=== PATIENT | male | born 1945 | race Caucasian/White ===

== ENCOUNTER 2020-07-08 17:31 | Inpatient (IN) ==
[2020-07-08] MEDS ORDERED: Aspirin 81 MG TAB.CHEW PO ONE (17:49)
[2020-07-08 18:06] LABS: Basophils # 0.1 K/mcL (0.0-0.2); Basophils % 0.8 %; Eosinophils # 0.2 K/mcL (0.0-0.6); Eosinophils % 2.4 %; Hematocrit 25.4 % (37.5-50.1); Hemoglobin 7.4 g/dL (12.9-16.9); Immature Granulocytes % 0.7 % (0-4); Lymphocytes # 3.1 K/mcL (0.6-4.6); Lymphocytes % 49.8 %; Mean Corpuscular HGB Conc 29.1 g/dL (31.6-35.5); Mean Corpuscular Hemoglobin 25.8 pg (28.0-33.3); Mean Corpuscular Volume 88.5 fL (83.0-100.0); Monocytes # 0.9 K/mcL (0.0-1.3); Monocytes % 14.7 %; Neutrophils # 1.9 K/mcL (1.6-8.9); Platelet Count 189 K/mcL (140-400); Red Blood Count 2.87 M/mcL (4.19-5.50); Red Cell Distribution Width 14.5 % (11.5-14.5); Segmented Neutrophils % 31.6 %; White Blood Count 6.1 K/mcL (4.3-11.1)
[2020-07-08 18:08] LABS: INR 1.1; Prothrombin Time 12.6 Seconds (9.4-12.1)
[2020-07-08 18:11] LABS: Activated Partial Thrombo Time 34.4 Seconds (26.0-36.0)
[2020-07-08] MEDS: DilTIAZem 50 MG/50 ML IV.SOLN IVC SCH (18:16)
[2020-07-08 18:28] LABS: BUN/Creatinine Ratio 18 (6-26); Blood Urea Nitrogen 20 mg/dL (8-23); Calcium 8.8 mg/dL (8.6-10.3); Carbon Dioxide 24 mEq/L (23-29); Chloride 103 mEq/L (98-107); Glucose 121 mg/dL (70-105); Osmolality,Calculated 288 (280-300); Potassium 3.5 mEq/L (3.5-5.1); Sodium 137 mEq/L (136-145); eGFR For African Americans > 60 (> 60); eGFR For Non-African Americans > 60 (> 60)
[2020-07-08 18:49] LABS: Troponin I < 0.03 ng/mL (< 0.04)
[2020-07-08] MEDS ORDERED: 0.9 % Sodium Chloride 500 ML IVC ONE (18:58)
[2020-07-08 21:35] LABS: Adenovirus Not Detected (Not Detect); Coronavirus 229E Not Detected (Not Detect); Coronavirus HKU1 Not Detected (Not Detect); Coronavirus NL63 Not Detected (Not Detect); Coronavirus OC43 Not Detected (Not Detect)
[2020-07-08 21:36] LABS: Bordetella Pertussis Not Detected (Not Detect); Chlamydophila pneumoniae Not Detected (Not Detect); Human Metapneumovirus Not Detected (Not Detect); Human Rhinovirus/Enterovirus Not Detected (Not Detect); Influenza A Subtype 2009 H1 Not Detected (Not Detect); Influenza B Not Detected (Not Detect); Mycoplasma pneumoniae Not Detected (Not Detect); Parainfluenza Virus 1 Not Detected (Not Detect); Parainfluenza Virus 2 Not Detected (Not Detect); Parainfluenza Virus 3 Not Detected (Not Detect); Parainfluenza Virus 4 Not Detected (Not Detect); Respiratory Syncytial Virus Not Detected (Not Detect); SARS-CoV-2 Not Detected (Not Detect)
[2020-07-08] MEDS ORDERED: Ondansetron ODT 4 MG TAB.RAPDIS SL PRN (22:45)
[2020-07-08] MEDS ORDERED: Naloxone 0.4 MG/ML INJ IVP PRN (22:45)
[2020-07-08] MEDS ORDERED: Acetaminophen 325 MG TABLET PO PRN (22:45)
[2020-07-08] MEDS ORDERED: Perflutren Lipid Microsphere 1.3 ML in 0.9 % Sodium Chloride 8.7 ML IVP PRN (22:50)
[2020-07-08] MEDS ORDERED: SUMAtriptan succinate 50 MG TABLET PO PRN (22:51)
[2020-07-08] MEDS ORDERED: Levalbuterol 1 PUFF INHALER IH PRN (23:17)
[2020-07-09 04:00] LABS: BUN/Creatinine Ratio 23 (6-26); Blood Urea Nitrogen 22 mg/dL (8-23); Calcium 8.1 mg/dL (8.6-10.3); Carbon Dioxide 24 mEq/L (23-29); Chloride 107 mEq/L (98-107); Glucose 109 mg/dL (70-105); Magnesium 1.6 mg/dL (1.6-2.6); Osmolality,Calculated 292 (280-300); Phosphorous 4.2 mg/dL (2.7-4.5); Potassium 3.7 mEq/L (3.5-5.1); Sodium 139 mEq/L (136-145); eGFR For African Americans > 60 (> 60); eGFR For Non-African Americans > 60 (> 60)
[2020-07-09 04:03] LABS: INR 1.1; Prothrombin Time 12.2 Seconds (9.4-12.1)
[2020-07-09 04:45] LABS: Ferritin < 8 ng/mL (20-250); Iron < 10 mcg/dL (65-175); Transferrin 308 mg/dL (203-362)
[2020-07-09] MEDS: DilTIAZem 50 MG/50 ML IV.SOLN IVC SCH ×3 (05:15→14:35)
[2020-07-09 05:48] LABS: Folate 7.7 ng/mL (3.0-16.0)
[2020-07-09 06:51] LABS: Basophils % 0.9 %; Eosinophils # 0.1 K/mcL (0.0-0.6); Eosinophils % 2.2 %; Hematocrit 21.8 % (37.5-50.1); Hemoglobin 6.5 g/dL (12.9-16.9); Immature Granulocytes % 0.4 % (0-4); Lymphocytes # 1.8 K/mcL (0.6-4.6); Lymphocytes % 39.3 %; Mean Corpuscular HGB Conc 29.8 g/dL (31.6-35.5); Mean Corpuscular Volume 87.2 fL (83.0-100.0); Mean Platelet Volume 12.3 fL (9.4-12.4); Monocytes # 0.7 K/mcL (0.0-1.3); Monocytes % 16.4 %; Neutrophils # 1.8 K/mcL (1.6-8.9); Platelet Count 191 K/mcL (140-400); Red Cell Distribution Width 14.7 % (11.5-14.5); Segmented Neutrophils % 40.8 %; White Blood Count 4.5 K/mcL (4.3-11.1)
[2020-07-09] MEDS: Budesonide/Formoterol 80/4.5 1 PUFF INH IH SCH ×2 (08:07→21:52)
[2020-07-09] MEDS: Pregabalin 75 MG CAPSULE PO SCH ×2 (08:55→20:46)
[2020-07-09] MEDS ORDERED: Metoprolol XL (24 HR) Succ 50 MG TAB.ER.24H PO SCH (09:00)
[2020-07-09] MEDS ORDERED: Apixaban 5 MG TABLET PO SCH (09:00)
[2020-07-09] MEDS ORDERED: Topiramate 100 MG TABLET PO SCH (09:00)
[2020-07-09] MEDS ORDERED: Aspirin Enteric Coated 81 MG Tablet PO SCH (09:00)
[2020-07-09] MEDS ORDERED: 0.9 % Sodium Chloride 250 ML ONE ×2 (10:15→17:18)
[2020-07-09] MEDS ORDERED: Nitroglycerin 0.4 MG TAB.SUBL SL PRN (12:48)
[2020-07-09] MEDS ORDERED: Ipratropium/Albuterol Neb 3 ML IH PRN (12:48)
[2020-07-09] MEDS ORDERED: Fluticasone Propionate Nasal 50 MCG/SPRAY BOTTLE NS PRN (12:48)
[2020-07-09] MEDS: Ranolazine 500 MG TAB.ER.12H PO SCH (13:31)
[2020-07-09] MEDS: Finasteride 5 MG TABLET PO SCH (13:31)
[2020-07-09] MEDS: Divalproex (24 HR) 500 MG TABLET PO SCH (13:33)
[2020-07-09 16:13] LABS: Hematocrit 24.8 % (37.5-50.1); Hemoglobin 7.5 g/dL (12.9-16.9)
[2020-07-09 22:35] LABS: Hematocrit 26.7 % (37.5-50.1); Hemoglobin 8.2 g/dL (12.9-16.9)
[2020-07-10] MEDS: Latanoprost 2.5 ML BOTTLE BOTH EYES SCH ×2 (00:22→21:27)
[2020-07-10] MEDS: Divalproex (24 HR) 500 MG TABLET PO SCH ×2 (00:31→12:27)
[2020-07-10] MEDS: Ranolazine 500 MG TAB.ER.12H PO SCH ×2 (00:31→12:27)
[2020-07-10 05:28] LABS: Hematocrit 26.5 % (37.5-50.1); Mean Corpuscular HGB Conc 30.2 g/dL (31.6-35.5); Mean Corpuscular Hemoglobin 26.6 pg (28.0-33.3); Mean Platelet Volume 11.6 fL (9.4-12.4); Platelet Count 186 K/mcL (140-400); Red Blood Count 3.01 M/mcL (4.19-5.50); Red Cell Distribution Width 15.1 % (11.5-14.5); White Blood Count 5.3 K/mcL (4.3-11.1)
[2020-07-10 05:57] LABS: BUN/Creatinine Ratio 21 (6-26); Blood Urea Nitrogen 22 mg/dL (8-23); Calcium 8.8 mg/dL (8.6-10.3); Carbon Dioxide 24 mEq/L (23-29); Chloride 111 mEq/L (98-107); Glucose 107 mg/dL (70-105); Magnesium 1.8 mg/dL (1.6-2.6); Osmolality,Calculated 294 (280-300); Phosphorous 3.2 mg/dL (2.7-4.5); Potassium 4.3 mEq/L (3.5-5.1); Sodium 140 mEq/L (136-145); eGFR For African Americans > 60 (> 60); eGFR For Non-African Americans > 60 (> 60)
[2020-07-10] MEDS: *HR* HYDROcodone/Acet 5/325 mg TABLET PO PRN ×3 (06:11→21:26)
[2020-07-10] MEDS: Budesonide/Formoterol 80/4.5 1 PUFF INH IH SCH ×2 (07:42→20:10)
[2020-07-10] MEDS: Sennosides 8.6 MG TABLET PO SCH (07:55)
[2020-07-10] MEDS: Loratadine 10 MG TABLET PO SCH (07:55)
[2020-07-10] MEDS: Finasteride 5 MG TABLET PO SCH (07:55)
[2020-07-10] MEDS: Pregabalin 75 MG CAPSULE PO SCH ×2 (07:55→20:01)
[2020-07-10] MEDS: Metoprolol XL (24 HR) Succ 50 MG TAB.ER.24H PO SCH (11:51)
[2020-07-10 14:42] LABS: Hematocrit 26.6 % (37.5-50.1)
[2020-07-10] MEDS ORDERED: *HR* Metoprolol 5 MG/5 ML VIAL IVP PRN (18:20)
[2020-07-10 20:08] LABS: Hematocrit 26.6 % (37.5-50.1); Hemoglobin 8.1 g/dL (12.9-16.9)
[2020-07-11] MEDS: Divalproex (24 HR) 500 MG TABLET PO SCH ×2 (00:10→11:59)
[2020-07-11] MEDS: Ranolazine 500 MG TAB.ER.12H PO SCH ×2 (00:10→11:59)
[2020-07-11 03:06] LABS: Hematocrit 27.6 % (37.5-50.1); Hemoglobin 8.1 g/dL (12.9-16.9); Mean Corpuscular HGB Conc 29.3 g/dL (31.6-35.5); Mean Corpuscular Hemoglobin 25.8 pg (28.0-33.3); Mean Corpuscular Volume 87.9 fL (83.0-100.0); Mean Platelet Volume 12.3 fL (9.4-12.4); Platelet Count 198 K/mcL (140-400); Red Blood Count 3.14 M/mcL (4.19-5.50); Red Cell Distribution Width 15.4 % (11.5-14.5); White Blood Count 5.7 K/mcL (4.3-11.1)
[2020-07-11 03:22] LABS: BUN/Creatinine Ratio 25 (6-26); Blood Urea Nitrogen 27 mg/dL (8-23); Calcium 8.5 mg/dL (8.6-10.3); Carbon Dioxide 22 mEq/L (23-29); Chloride 110 mEq/L (98-107); Glucose 101 mg/dL (70-105); Osmolality,Calculated 295 (280-300); Potassium 4.2 mEq/L (3.5-5.1); Sodium 140 mEq/L (136-145); eGFR For African Americans > 60 (> 60); eGFR For Non-African Americans > 60 (> 60)
[2020-07-11] MEDS: Sennosides 8.6 MG TABLET PO SCH (07:52)
[2020-07-11] MEDS: Loratadine 10 MG TABLET PO SCH (07:53)
[2020-07-11] MEDS: Metoprolol XL (24 HR) Succ 50 MG TAB.ER.24H PO SCH (07:54)
[2020-07-11] MEDS: Pregabalin 75 MG CAPSULE PO SCH ×2 (07:54→20:16)
[2020-07-11] MEDS: Finasteride 5 MG TABLET PO SCH (07:54)
[2020-07-11] MEDS: *HR* HYDROcodone/Acet 5/325 mg TABLET PO PRN ×2 (08:06→20:20)
[2020-07-11] MEDS: Budesonide/Formoterol 80/4.5 1 PUFF INH IH SCH ×2 (10:32→21:10)
[2020-07-11 13:09] LABS: Hematocrit 29.3 % (37.5-50.1); Hemoglobin 8.8 g/dL (12.9-16.9)
[2020-07-11] MEDS: Latanoprost 2.5 ML BOTTLE BOTH EYES SCH (20:16)
[2020-07-12] MEDS: Ranolazine 500 MG TAB.ER.12H PO SCH ×2 (01:01→12:51)
[2020-07-12] MEDS: Divalproex (24 HR) 500 MG TABLET PO SCH ×2 (01:01→12:51)
[2020-07-12 03:24] LABS: Hematocrit 25.4 % (37.5-50.1); Hemoglobin 7.6 g/dL (12.9-16.9); Mean Corpuscular HGB Conc 29.9 g/dL (31.6-35.5); Mean Corpuscular Hemoglobin 25.9 pg (28.0-33.3); Mean Corpuscular Volume 86.7 fL (83.0-100.0); Mean Platelet Volume 12.3 fL (9.4-12.4); Platelet Count 187 K/mcL (140-400); Red Blood Count 2.93 M/mcL (4.19-5.50); Red Cell Distribution Width 15.5 % (11.5-14.5); White Blood Count 6.3 K/mcL (4.3-11.1)
[2020-07-12 03:36] LABS: BUN/Creatinine Ratio 27 (6-26); Blood Urea Nitrogen 25 mg/dL (8-23); Calcium 8.1 mg/dL (8.6-10.3); Carbon Dioxide 21 mEq/L (23-29); Chloride 110 mEq/L (98-107); Glucose 101 mg/dL (70-105); Osmolality,Calculated 293 (280-300); Potassium 4.2 mEq/L (3.5-5.1); Sodium 139 mEq/L (136-145); eGFR For African Americans > 60 (> 60); eGFR For Non-African Americans > 60 (> 60)
[2020-07-12] MEDS: Loratadine 10 MG TABLET PO SCH (08:18)
[2020-07-12] MEDS: Finasteride 5 MG TABLET PO SCH (08:19)
[2020-07-12] MEDS: Budesonide/Formoterol 80/4.5 1 PUFF INH IH SCH ×2 (08:19→21:30)
[2020-07-12] MEDS: Pregabalin 75 MG CAPSULE PO SCH ×2 (08:20→19:51)
[2020-07-12] MEDS: Sennosides 8.6 MG TABLET PO SCH (08:20)
[2020-07-12] MEDS: Metoprolol XL (24 HR) Succ 50 MG TAB.ER.24H PO SCH (08:20)
[2020-07-12] MEDS: *HR* HYDROcodone/Acet 5/325 mg TABLET PO PRN ×2 (08:30→18:40)
[2020-07-12 08:56] LABS: Hemoglobin 8.4 g/dL (12.9-16.9)
[2020-07-12] MEDS ORDERED: DilTIAZem CD (24hr) 120 MG CAP.ER.24H PO ONE (14:00)
[2020-07-12] MEDS: Latanoprost 2.5 ML BOTTLE BOTH EYES SCH (19:54)
[2020-07-13] MEDS: Divalproex (24 HR) 500 MG TABLET PO SCH ×2 (00:06→12:53)
[2020-07-13] MEDS: Ranolazine 500 MG TAB.ER.12H PO SCH ×2 (00:06→12:53)
[2020-07-13] MEDS: *HR* HYDROcodone/Acet 5/325 mg TABLET PO PRN ×3 (00:12→15:14)
[2020-07-13 07:24] LABS: Hematocrit 27.2 % (37.5-50.1); Hemoglobin 8.1 g/dL (12.9-16.9); Mean Corpuscular HGB Conc 29.8 g/dL (31.6-35.5); Mean Corpuscular Hemoglobin 26.3 pg (28.0-33.3); Mean Corpuscular Volume 88.3 fL (83.0-100.0); Mean Platelet Volume 11.6 fL (9.4-12.4); Platelet Count 202 K/mcL (140-400); Red Blood Count 3.08 M/mcL (4.19-5.50); Red Cell Distribution Width 15.8 % (11.5-14.5); White Blood Count 4.9 K/mcL (4.3-11.1)
[2020-07-13 07:44] LABS: BUN/Creatinine Ratio 19 (6-26); Blood Urea Nitrogen 18 mg/dL (8-23); Calcium 8.6 mg/dL (8.6-10.3); Carbon Dioxide 25 mEq/L (23-29); Chloride 109 mEq/L (98-107); Glucose 91 mg/dL (70-105); Osmolality,Calculated 293 (280-300); Potassium 3.9 mEq/L (3.5-5.1); Sodium 141 mEq/L (136-145); eGFR For African Americans > 60 (> 60); eGFR For Non-African Americans > 60 (> 60)
[2020-07-13] MEDS: Loratadine 10 MG TABLET PO SCH (08:16)
[2020-07-13] MEDS: DilTIAZem CD (24hr) 180 MG CAP.ER.24H PO SCH (08:16)
[2020-07-13] MEDS: Sennosides 8.6 MG TABLET PO SCH (08:16)
[2020-07-13] MEDS: Pregabalin 75 MG CAPSULE PO SCH ×2 (08:16→19:11)
[2020-07-13] MEDS: Finasteride 5 MG TABLET PO SCH (08:17)
[2020-07-13] MEDS: Metoprolol XL (24 HR) Succ 50 MG TAB.ER.24H PO SCH (08:17)
[2020-07-13] MEDS: predniSONE 20 MG TABLET PO SCH ×2 (08:57→09:00)
[2020-07-13] MEDS: Budesonide/Formoterol 80/4.5 1 PUFF INH IH SCH ×2 (11:48→21:43)
[2020-07-13] MEDS ORDERED: SODIUM CHLORIDE/NAHCO3/KCL/PEG 4,000 ML SOLN.RECON PO ONE (17:00)
[2020-07-13] MEDS: Latanoprost 2.5 ML BOTTLE BOTH EYES SCH (19:12)
[2020-07-14] MEDS: Divalproex (24 HR) 500 MG TABLET PO SCH ×2 (01:44→15:33)
[2020-07-14] MEDS: Ranolazine 500 MG TAB.ER.12H PO SCH ×2 (01:44→15:33)
[2020-07-14 07:10] LABS: Hematocrit 27.4 % (37.5-50.1); Hemoglobin 8.1 g/dL (12.9-16.9); Mean Corpuscular HGB Conc 29.6 g/dL (31.6-35.5); Mean Corpuscular Hemoglobin 25.3 pg (28.0-33.3); Mean Corpuscular Volume 85.6 fL (83.0-100.0); Mean Platelet Volume 11.7 fL (9.4-12.4); Platelet Count 234 K/mcL (140-400); Red Cell Distribution Width 15.6 % (11.5-14.5); White Blood Count 5.9 K/mcL (4.3-11.1)
[2020-07-14 07:23] LABS: BUN/Creatinine Ratio 19 (6-26); Blood Urea Nitrogen 17 mg/dL (8-23); Calcium 8.7 mg/dL (8.6-10.3); Carbon Dioxide 26 mEq/L (23-29); Chloride 108 mEq/L (98-107); Glucose 93 mg/dL (70-105); Magnesium 1.8 mg/dL (1.6-2.6); Osmolality,Calculated 291 (280-300); Potassium 3.3 mEq/L (3.5-5.1); Sodium 140 mEq/L (136-145); eGFR For African Americans > 60 (> 60); eGFR For Non-African Americans > 60 (> 60)
[2020-07-14] MEDS: predniSONE 20 MG TABLET PO SCH (08:38)
[2020-07-14] MEDS: Metoprolol XL (24 HR) Succ 50 MG TAB.ER.24H PO SCH (08:38)
[2020-07-14] MEDS: Finasteride 5 MG TABLET PO SCH (08:38)
[2020-07-14] MEDS: Pregabalin 75 MG CAPSULE PO SCH ×2 (08:38→19:28)
[2020-07-14] MEDS: DilTIAZem CD (24hr) 180 MG CAP.ER.24H PO SCH (08:38)
[2020-07-14] MEDS: *HR* HYDROcodone/Acet 5/325 mg TABLET PO PRN (08:42)
[2020-07-14] MEDS: Budesonide/Formoterol 80/4.5 1 PUFF INH IH SCH (10:09)
[2020-07-14] MEDS: Loratadine 10 MG TABLET PO SCH (14:55)
[2020-07-14] MEDS: Sennosides 8.6 MG TABLET PO SCH (14:55)
[2020-07-14 15:51] VITALS: BP 115/76
[2020-07-14] MEDS: Latanoprost 2.5 ML BOTTLE BOTH EYES SCH (19:31)
[2020-07-14] MEDS ORDERED: *HR* Propofol 200 MG/20 ML VIAL IVP ONE (19:59)
== END 2020-07-14 20:00 | disposition home or self-care (01) | DRG 280 ==
LOC: 2ANU 17:31 → EMEROOARM 17:31 → SUATTDRO 21:49 → 2ANU 22:27
PROVIDERS: ADMIT Internal Medicine; ATTEND Student in an Organized Health Care Education/Training Program
PROC: ENDOEBX (2020-07-14 13:00)

== ENCOUNTER 2020-08-04 13:10 | Observation (INO) ==
[2020-08-04 14:35] LABS: Basophils % 0.7 %; Eosinophils # 0.1 K/mcL (0.0-0.6); Eosinophils % 1.8 %; Hematocrit 30.3 % (37.5-50.1); Hemoglobin 8.8 g/dL (12.9-16.9); Immature Granulocytes % 0.5 % (0-4); Lymphocytes # 2.1 K/mcL (0.6-4.6); Mean Corpuscular Hemoglobin 25.7 pg (28.0-33.3); Mean Corpuscular Volume 88.6 fL (83.0-100.0); Mean Platelet Volume 11.6 fL (9.4-12.4); Monocytes # 0.8 K/mcL (0.0-1.3); Monocytes % 15.1 %; Neutrophils # 2.5 K/mcL (1.6-8.9); Platelet Count 154 K/mcL (140-400); Red Blood Count 3.42 M/mcL (4.19-5.50); Red Cell Distribution Width 21.6 % (11.5-14.5); Segmented Neutrophils % 43.9 %; White Blood Count 5.6 K/mcL (4.3-11.1)
[2020-08-04 15:01] LABS: Alanine Aminotransferase 12 Units/L (7-52); Albumin 3.5 g/dL (3.5-5.7); Albumin/Globulin Ratio 1.1 (1.1-2.2); Alkaline Phosphatase 68 Units/L (34-104); Aspartate Amino Transferase 16 Units/L (13-39); BUN/Creatinine Ratio 15 (6-26); Bilirubin,Total 0.4 mg/dL (0.3-1.0); Blood Urea Nitrogen 15 mg/dL (8-23); Calcium 8.4 mg/dL (8.6-10.3); Carbon Dioxide 23 mEq/L (23-29); Chloride 108 mEq/L (98-107); Globulin 3.3 g/dL (2.4-3.5); Glucose 112 mg/dL (70-105); Osmolality,Calculated 294 (280-300); Potassium 3.8 mEq/L (3.5-5.1); Sodium 141 mEq/L (136-145); Total Protein 6.8 g/dL (6.4-8.9); Troponin I 0.06 ng/mL (< 0.04); eGFR For African Americans > 60 (> 60); eGFR For Non-African Americans > 60 (> 60)
[2020-08-04] MEDS ORDERED: Ondansetron ODT 4 MG TAB.RAPDIS SL PRN (17:26)
[2020-08-04] MEDS ORDERED: Acetaminophen 325 MG TABLET PO PRN (17:26)
[2020-08-04] MEDS ORDERED: Naloxone 0.4 MG/ML INJ IVP PRN (17:26)
[2020-08-04] MEDS ORDERED: Fluticasone Propionate Nasal 50 MCG/SPRAY BOTTLE NS PRN (17:28)
[2020-08-04] MEDS ORDERED: Nitroglycerin 0.4 MG TAB.SUBL SL PRN (17:28)
[2020-08-04] MEDS ORDERED: Ipratropium/Albuterol Neb 3 ML IH PRN (17:28)
[2020-08-04] MEDS: Divalproex (24 HR) 500 MG TABLET PO SCH (19:05)
[2020-08-04] MEDS ORDERED: Latanoprost 2.5 ML BOTTLE BOTH EYES SCH (21:00)
[2020-08-04] MEDS: Apixaban 5 MG TABLET PO SCH (21:00)
[2020-08-05 04:12] LABS: Basophils % 0.7 %; Eosinophils # 0.1 K/mcL (0.0-0.6); Eosinophils % 3.3 %; Hematocrit 27.5 % (37.5-50.1); Immature Granulocytes % 0.2 % (0-4); Lymphocytes # 1.6 K/mcL (0.6-4.6); Lymphocytes % 38.7 %; Mean Corpuscular HGB Conc 29.1 g/dL (31.6-35.5); Mean Corpuscular Hemoglobin 25.8 pg (28.0-33.3); Mean Corpuscular Volume 88.7 fL (83.0-100.0); Mean Platelet Volume 12.5 fL (9.4-12.4); Monocytes # 0.7 K/mcL (0.0-1.3); Monocytes % 15.8 %; Neutrophils # 1.7 K/mcL (1.6-8.9); Platelet Count 141 K/mcL (140-400); Red Cell Distribution Width 21.4 % (11.5-14.5); Segmented Neutrophils % 41.3 %; White Blood Count 4.2 K/mcL (4.3-11.1)
[2020-08-05 04:14] LABS: INR 1.3; Prothrombin Time 14.5 Seconds (9.4-12.1)
[2020-08-05 04:31] LABS: BUN/Creatinine Ratio 18 (6-26); Blood Urea Nitrogen 15 mg/dL (8-23); Calcium 8.2 mg/dL (8.6-10.3); Carbon Dioxide 27 mEq/L (23-29); Chloride 109 mEq/L (98-107); Cholesterol 88 mg/dL (< 200); Glucose 78 mg/dL (70-105); HDL Cholesterol 22 mg/dL (40-59); LDL Cholesterol,Calculated 44 mg/dL (< 100); Osmolality,Calculated 296 (280-300); Potassium 3.4 mEq/L (3.5-5.1); Sodium 143 mEq/L (136-145); Triglycerides 111 mg/dL (< 150); eGFR For African Americans > 60 (> 60); eGFR For Non-African Americans > 60 (> 60)
[2020-08-05] MEDS: Divalproex (24 HR) 500 MG TABLET PO SCH (05:23)
[2020-08-05] MEDS ORDERED: Regadenoson 0.4 MG/5 ML SYRINGE IVP ONE (08:16)
[2020-08-05] MEDS ORDERED: Aspirin Enteric Coated 81 MG Tablet PO SCH (09:00)
[2020-08-05] MEDS ORDERED: DilTIAZem CD (24hr) 180 MG CAP.ER.24H PO SCH (09:00)
[2020-08-05] MEDS ORDERED: Sennosides 8.6 MG TABLET PO SCH (09:00)
[2020-08-05] MEDS ORDERED: Loratadine 10 MG TABLET PO SCH (09:00)
[2020-08-05 10:48] LABS: Estimated Average Glucose 103 mg/dl; Hemoglobin A1C 5.2 %
[2020-08-05 11:38] VITALS: BP 104/66
[2020-08-05] MEDS: Apixaban 5 MG TABLET PO SCH (11:48)
== END 2020-08-05 16:20 | disposition home or self-care (01) ==
LOC: EMEROOARM 13:10 → 3BNU 13:10
PROVIDERS: ADMIT Internal Medicine; ATTEND Internal Medicine

== ENCOUNTER 2020-09-07 14:52 | Observation (INO) ==
[2020-09-07 10:38] LABS: Basophils # 0.1 K/mcL (0.0-0.2); Eosinophils # 0.2 K/mcL (0.0-0.6); Hematocrit 28.1 % (37.5-50.1); Hemoglobin 8.6 g/dL (12.9-16.9); Immature Granulocytes % 1.1 % (0-4); Mean Corpuscular HGB Conc 30.6 g/dL (31.6-35.5); Mean Corpuscular Hemoglobin 28.5 pg (28.0-33.3); Mean Platelet Volume 11.9 fL (9.4-12.4); Nucleated Red Blood Cells 0.4 /100 WBC (0); Platelet Count 138 K/mcL (140-400); Red Blood Count 3.02 M/mcL (4.19-5.50); White Blood Count 4.7 K/mcL (4.3-11.1)
[2020-09-07 10:56] LABS: BUN/Creatinine Ratio 18 (6-26); Blood Urea Nitrogen 18 mg/dL (8-23); Calcium 8.4 mg/dL (8.6-10.3); Carbon Dioxide 27 mEq/L (23-29); Chloride 107 mEq/L (98-107); Glucose 113 mg/dL (70-105); Magnesium 1.5 mg/dL (1.6-2.6); Osmolality,Calculated 295 (280-300); Potassium 3.6 mEq/L (3.5-5.1); Sodium 141 mEq/L (136-145); eGFR For African Americans > 60 (> 60); eGFR For Non-African Americans > 60 (> 60)
[2020-09-07 11:19] LABS: Neutrophils # 1.8 K/mcL (1.6-8.9)
[2020-09-07 11:20] LABS: Anisocytosis 1+ (Not Present); Monocytes # 0.6 K/mcL (0.0-1.3); Poikilocytosis 1+ (Not Present)
[2020-09-07 11:21] LABS: Platelet Estimate Normal (Normal)
[~2020-09-07 14:52] MED LIST: Budesonide/Formoterol 160/4.5 1 PUFF INH IH PRN; Fluticasone Propionate Nasal 50 MCG/SPRAY BOTTLE NS PRN; Magnesium Sulfate 1 GM/102 ML PIGGYBACK IVPB ONE; Naloxone 0.4 MG/ML INJ IVP PRN; Nitroglycerin 0.4 MG TAB.SUBL SL PRN
[2020-09-07] MEDS: Ranolazine 500 MG TAB.ER.12H PO SCH ×2 (14:58→20:42)
[2020-09-07] MEDS: *HR* HYDROcodone/Acet 5/325 mg TABLET PO PRN ×2 (16:14→23:03)
[2020-09-07] MEDS: Sennosides 8.6 MG TABLET PO SCH (20:42)
[2020-09-07] MEDS: Pregabalin 75 MG CAPSULE PO SCH (20:42)
[2020-09-07] MEDS: Divalproex (24 HR) 500 MG TABLET PO SCH (20:42)
[2020-09-07] MEDS: Apixaban 5 MG TABLET PO SCH (20:42)
[2020-09-07] MEDS: Latanoprost 2.5 ML BOTTLE BOTH EYES SCH (20:43)
[2020-09-08] MEDS: Finasteride 5 MG TABLET PO SCH (07:58)
[2020-09-08] MEDS: Cholecalciferol (D-3) 1,000 UNIT (25MCG) TABLET PO SCH (07:58)
[2020-09-08] MEDS: Divalproex (24 HR) 500 MG TABLET PO SCH ×2 (07:58→22:48)
[2020-09-08] MEDS: Pregabalin 75 MG CAPSULE PO SCH ×2 (07:59→22:48)
[2020-09-08] MEDS: Apixaban 5 MG TABLET PO SCH ×2 (07:59→22:47)
[2020-09-08] MEDS: Ranolazine 500 MG TAB.ER.12H PO SCH ×2 (07:59→22:48)
[2020-09-08] MEDS: Loratadine 10 MG TABLET PO SCH (07:59)
[2020-09-08] MEDS: Furosemide 40 MG TABLET PO SCH (07:59)
[2020-09-08] MEDS: DilTIAZem CD (24hr) 180 MG CAP.ER.24H PO SCH (07:59)
[2020-09-08] MEDS: Metoprolol XL (24 HR) Succ 25 MG TAB.ER.24H PO SCH (07:59)
[2020-09-08] MEDS: Sennosides 8.6 MG TABLET PO SCH ×2 (08:00→22:48)
[2020-09-08] MEDS: *HR* HYDROcodone/Acet 5/325 mg TABLET PO PRN ×2 (08:05→22:53)
[2020-09-08] MEDS: Latanoprost 2.5 ML BOTTLE BOTH EYES SCH (22:55)
[2020-09-09 03:05] LABS: Basophils # 0.1 K/mcL (0.0-0.2); Basophils % 1.1 %; Eosinophils # 0.2 K/mcL (0.0-0.6); Hematocrit 26.4 % (37.5-50.1); Hemoglobin 8.1 g/dL (12.9-16.9); Immature Granulocytes % 0.9 % (0-4); Lymphocytes # 1.8 K/mcL (0.6-4.6); Lymphocytes % 34.3 %; Mean Corpuscular HGB Conc 30.7 g/dL (31.6-35.5); Mean Corpuscular Hemoglobin 29.2 pg (28.0-33.3); Mean Corpuscular Volume 95.3 fL (83.0-100.0); Mean Platelet Volume 12.4 fL (9.4-12.4); Monocytes # 0.9 K/mcL (0.0-1.3); Monocytes % 16.4 %; Neutrophils # 2.4 K/mcL (1.6-8.9); Nucleated Red Blood Cells 0.4 /100 WBC (0); Platelet Count 147 K/mcL (140-400); Red Blood Count 2.77 M/mcL (4.19-5.50); Red Cell Distribution Width 19.3 % (11.5-14.5); Segmented Neutrophils % 44.3 %; White Blood Count 5.4 K/mcL (4.3-11.1)
[2020-09-09 06:45] VITALS: BP 109/69
[2020-09-09] MEDS: Apixaban 5 MG TABLET PO SCH (08:34)
[2020-09-09] MEDS: DilTIAZem CD (24hr) 180 MG CAP.ER.24H PO SCH (08:35)
[2020-09-09] MEDS: Cholecalciferol (D-3) 1,000 UNIT (25MCG) TABLET PO SCH (08:35)
[2020-09-09] MEDS: Pregabalin 75 MG CAPSULE PO SCH (08:35)
[2020-09-09] MEDS: Metoprolol XL (24 HR) Succ 25 MG TAB.ER.24H PO SCH (08:35)
[2020-09-09] MEDS: Loratadine 10 MG TABLET PO SCH (08:36)
[2020-09-09] MEDS: Divalproex (24 HR) 500 MG TABLET PO SCH (08:36)
[2020-09-09] MEDS: Sennosides 8.6 MG TABLET PO SCH (08:36)
[2020-09-09] MEDS: Ranolazine 500 MG TAB.ER.12H PO SCH (08:36)
[2020-09-09] MEDS: Furosemide 40 MG TABLET PO SCH (08:36)
[2020-09-09] MEDS: Finasteride 5 MG TABLET PO SCH (08:38)
[2020-09-09] MEDS: *HR* HYDROcodone/Acet 5/325 mg TABLET PO PRN (08:43)
== END 2020-09-09 12:34 | disposition home or self-care (01) ==
LOC: 3BNU
PROVIDERS: ADMIT Internal Medicine Clinical Cardiac Electrophysiology; ATTEND Internal Medicine Clinical Cardiac Electrophysiology

== ENCOUNTER 2021-01-01 04:52 | Observation (INO) ==
[2021-01-01] MEDS ORDERED: Aspirin 81 MG TAB.CHEW PO ONE (05:41)
[2021-01-01] MEDS ORDERED: Isovue-370 500 ML BOTTLE IVP ONE (05:46)
[2021-01-01 06:06] LABS: Basophils % 0.6 %; Eosinophils % 0.3 %; Hematocrit 38.4 % (37.5-50.1); Hemoglobin 12.4 g/dL (12.9-16.9); Immature Granulocytes % 0.5 % (0-4); Lymphocytes # 0.6 K/mcL (0.6-4.6); Lymphocytes % 9.9 %; Mean Corpuscular HGB Conc 32.3 g/dL (31.6-35.5); Mean Corpuscular Hemoglobin 29.7 pg (28.0-33.3); Mean Corpuscular Volume 91.9 fL (83.0-100.0); Monocytes # 0.7 K/mcL (0.0-1.3); Monocytes % 10.7 %; Neutrophils # 4.9 K/mcL (1.6-8.9); Platelet Count 123 K/mcL (140-400); Red Blood Count 4.18 M/mcL (4.19-5.50); Red Cell Distribution Width 14.7 % (11.5-14.5); White Blood Count 6.3 K/mcL (4.3-11.1)
[2021-01-01 06:09] LABS: INR 1.4; Prothrombin Time 15.7 Seconds (9.4-12.1)
[2021-01-01 06:11] LABS: Activated Partial Thrombo Time 38.1 Seconds (26.0-36.0)
[2021-01-01 06:16] LABS: Alanine Aminotransferase 20 Units/L (7-52); Albumin 3.8 g/dL (3.5-5.7); Albumin/Globulin Ratio 1.1 (1.1-2.2); Alkaline Phosphatase 80 Units/L (34-104); Aspartate Amino Transferase 23 Units/L (13-39); BUN/Creatinine Ratio 13 (6-26); Bilirubin,Direct 0.1 mg/dL (0.0-0.2); Bilirubin,Indirect 0.6 mg/dL (0.0-1.0); Bilirubin,Total 0.7 mg/dL (0.3-1.0); Blood Urea Nitrogen 12 mg/dL (8-23); Carbon Dioxide 25 mEq/L (23-29); Chloride 103 mEq/L (98-107); Globulin 3.6 g/dL (2.4-3.5); Glucose 111 mg/dL (70-105); Lipase 34 Units/L (11-82); Osmolality,Calculated 282 (280-300); Sodium 136 mEq/L (136-145); Total Protein 7.4 g/dL (6.4-8.9); eGFR For African Americans > 60 (> 60); eGFR For Non-African Americans > 60 (> 60)
[2021-01-01 06:23] LABS: Troponin I < 0.03 ng/mL (< 0.04)
[2021-01-01] MEDS ORDERED: Ondansetron ODT 4 MG TAB.RAPDIS SL PRN (08:41)
[2021-01-01] MEDS ORDERED: Naloxone 0.4 MG/ML INJ IVP PRN (08:41)
[2021-01-01] MEDS: Apixaban 5 MG TABLET PO SCH ×2 (10:00→20:25)
[2021-01-01] MEDS: Acetaminophen 325 MG TABLET PO PRN ×2 (10:00→18:22)
[2021-01-01] MEDS ORDERED: Nitroglycerin 0.4 MG TAB.SUBL SL PRN (17:17)
[2021-01-01] MEDS ORDERED: Melatonin 3 MG TABLET PO PRN (17:17)
[2021-01-01] MEDS ORDERED: Ipratropium/Albuterol Neb 3 ML IH PRN (17:17)
[2021-01-01] MEDS ORDERED: Fluticasone Propionate Nasal 50 MCG/SPRAY BOTTLE NS PRN (17:17)
[2021-01-01] MEDS: Divalproex (24 HR) 500 MG TABLET PO SCH (18:21)
[2021-01-01] MEDS: *HR* HYDROcodone/Acet 5/325 mg TABLET PO PRN (20:24)
[2021-01-01] MEDS: Sennosides 8.6 MG TABLET PO SCH (20:24)
[2021-01-01] MEDS: Pregabalin 75 MG CAPSULE PO SCH (20:25)
[2021-01-01] MEDS ORDERED: Apixaban 5 MG TABLET PO SCH (21:00)
[2021-01-02] MEDS: *HR* HYDROcodone/Acet 5/325 mg TABLET PO PRN ×3 (03:26→21:31)
[2021-01-02] MEDS: Divalproex (24 HR) 500 MG TABLET PO SCH ×2 (06:00→17:41)
[2021-01-02 07:30] LABS: Hemoglobin 12.1 g/dL (12.9-16.9)
[2021-01-02 07:31] LABS: Hematocrit 36.5 % (37.5-50.1); Immature Platelets 4.7 % (1.1-6.1); Mean Corpuscular HGB Conc 33.2 g/dL (31.6-35.5); Mean Corpuscular Hemoglobin 30.1 pg (28.0-33.3); Mean Corpuscular Volume 90.8 fL (83.0-100.0); Mean Platelet Volume 11.8 fL (9.4-12.4); Red Blood Count 4.02 M/mcL (4.19-5.50); White Blood Count 2.7 K/mcL (4.3-11.1)
[2021-01-02 07:52] LABS: BUN/Creatinine Ratio 13 (6-26); Blood Urea Nitrogen 10 mg/dL (8-23); Calcium 8.8 mg/dL (8.6-10.3); Carbon Dioxide 26 mEq/L (23-29); Chloride 106 mEq/L (98-107); Chol/HDL Ratio 5.1 (0-4.9); Cholesterol 107 mg/dL (< 200); Glucose 104 mg/dL (70-105); HDL Cholesterol 21 mg/dL (40-59); LDL Cholesterol,Calculated 53 mg/dL (< 100); Magnesium 1.7 mg/dL (1.6-2.6); Osmolality,Calculated 289 (280-300); Potassium 3.6 mEq/L (3.5-5.1); Sodium 140 mEq/L (136-145); Triglycerides 164 mg/dL (< 150); eGFR For African Americans > 60 (> 60); eGFR For Non-African Americans > 60 (> 60)
[2021-01-02] MEDS: Acetaminophen 325 MG TABLET PO PRN (08:40)
[2021-01-02] MEDS: Loratadine 10 MG TABLET PO SCH (08:40)
[2021-01-02] MEDS: Finasteride 5 MG TABLET PO SCH (08:40)
[2021-01-02] MEDS: Apixaban 5 MG TABLET PO SCH ×2 (08:40→21:31)
[2021-01-02] MEDS: Sennosides 8.6 MG TABLET PO SCH ×2 (08:41→21:31)
[2021-01-02] MEDS: Pregabalin 75 MG CAPSULE PO SCH ×2 (08:41→21:31)
[2021-01-02] MEDS ORDERED: DilTIAZem CD (24hr) 180 MG CAP.ER.24H PO SCH (09:00)
[2021-01-02] MEDS ORDERED: Metoprolol XL (24 HR) Succ 25 MG TAB.ER.24H PO SCH (09:00)
[2021-01-02] MEDS ORDERED: Perflutren Lipid Microsphere 1.3 ML in 0.9 % Sodium Chloride 8.7 ML IVP PRN (09:34)
[2021-01-02 15:28] LABS: Estimated Average Glucose 123 mg/dl; Hemoglobin A1C 5.9 %
[2021-01-03] MEDS: *HR* HYDROcodone/Acet 5/325 mg TABLET PO PRN ×2 (02:13→08:42)
[2021-01-03] MEDS: Divalproex (24 HR) 500 MG TABLET PO SCH (06:17)
[2021-01-03 07:28] LABS: Hematocrit 35.8 % (37.5-50.1); Hemoglobin 11.6 g/dL (12.9-16.9); Mean Corpuscular HGB Conc 32.4 g/dL (31.6-35.5); Mean Corpuscular Hemoglobin 29.5 pg (28.0-33.3); Mean Corpuscular Volume 91.1 fL (83.0-100.0); Mean Platelet Volume 11.8 fL (9.4-12.4); Platelet Count 108 K/mcL (140-400); Red Blood Count 3.93 M/mcL (4.19-5.50); Red Cell Distribution Width 15.1 % (11.5-14.5)
[2021-01-03 07:48] LABS: BUN/Creatinine Ratio 22 (6-26); Blood Urea Nitrogen 16 mg/dL (8-23); Calcium 8.7 mg/dL (8.6-10.3); Carbon Dioxide 25 mEq/L (23-29); Chloride 109 mEq/L (98-107); Glucose 109 mg/dL (70-105); Magnesium 1.8 mg/dL (1.6-2.6); Osmolality,Calculated 294 (280-300); Phosphorous 4.5 mg/dL (2.7-4.5); Potassium 3.8 mEq/L (3.5-5.1); Sodium 141 mEq/L (136-145); eGFR For African Americans > 60 (> 60); eGFR For Non-African Americans > 60 (> 60)
[2021-01-03] MEDS: Finasteride 5 MG TABLET PO SCH (08:41)
[2021-01-03] MEDS: Loratadine 10 MG TABLET PO SCH (08:41)
[2021-01-03] MEDS: Apixaban 5 MG TABLET PO SCH (08:42)
[2021-01-03] MEDS: Pregabalin 75 MG CAPSULE PO SCH (08:42)
[2021-01-03 10:47] VITALS: BP 115/79
[2021-01-03] MEDS: Sennosides 8.6 MG TABLET PO SCH (11:29)
== END 2021-01-03 13:35 | disposition home or self-care (01) ==
LOC: 2NENU 04:52 → EMEROOARM 04:52 → SUATTDRO 08:45 → 2NENU 09:21
PROVIDERS: ADMIT Internal Medicine; ATTEND Internal Medicine

== ENCOUNTER 2021-01-09 20:46 | Inpatient (IN) ==
[2021-01-09] MEDS ORDERED: Aspirin 81 MG TAB.CHEW PO ONE (21:13)
[2021-01-09] MEDS ORDERED: 0.9 % Sodium Chloride 1,000 ML IVC ONE (21:22)
[2021-01-09 21:51] LABS: Basophils # 0.1 K/mcL (0.0-0.2); Basophils % 1.1 %; Eosinophils # 0.2 K/mcL (0.0-0.6); Eosinophils % 2.3 %; Hematocrit 39.8 % (37.5-50.1); Hemoglobin 12.9 g/dL (12.9-16.9); Immature Granulocytes % 0.7 % (0-4); Lymphocytes # 3.5 K/mcL (0.6-4.6); Lymphocytes % 43.6 %; Mean Corpuscular HGB Conc 32.4 g/dL (31.6-35.5); Mean Corpuscular Hemoglobin 29.4 pg (28.0-33.3); Mean Corpuscular Volume 90.7 fL (83.0-100.0); Mean Platelet Volume 12.1 fL (9.4-12.4); Monocytes # 1.3 K/mcL (0.0-1.3); Monocytes % 16.5 %; Neutrophils # 2.9 K/mcL (1.6-8.9); Platelet Count 198 K/mcL (140-400); Red Blood Count 4.39 M/mcL (4.19-5.50); Red Cell Distribution Width 14.4 % (11.5-14.5); Segmented Neutrophils % 35.8 %
[2021-01-09 21:52] LABS: White Blood Count 8.1 K/mcL (4.3-11.1)
[2021-01-09 22:03] LABS: INR 1.3; Prothrombin Time 14.9 Seconds (9.4-12.1)
[2021-01-09 22:05] LABS: Activated Partial Thrombo Time 35.6 Seconds (26.0-36.0)
[2021-01-09 22:18] LABS: Alanine Aminotransferase 18 Units/L (7-52); Albumin 3.7 g/dL (3.5-5.7); Alkaline Phosphatase 78 Units/L (34-104); Aspartate Amino Transferase 21 Units/L (13-39); BUN/Creatinine Ratio 25 (6-26); Bilirubin,Direct 0.2 mg/dL (0.0-0.2); Bilirubin,Indirect 0.6 mg/dL (0.0-1.0); Bilirubin,Total 0.8 mg/dL (0.3-1.0); Blood Urea Nitrogen 23 mg/dL (8-23); Calcium 8.6 mg/dL (8.6-10.3); Carbon Dioxide 23 mEq/L (23-29); Chloride 105 mEq/L (98-107); Globulin 3.6 g/dL (2.4-3.5); Glucose 110 mg/dL (70-105); Lipase 36 Units/L (11-82); Osmolality,Calculated 292 (280-300); Potassium 3.6 mEq/L (3.5-5.1); Sodium 139 mEq/L (136-145); Total Protein 7.3 g/dL (6.4-8.9); Troponin I 0.11 ng/mL (< 0.04); eGFR For African Americans > 60 (> 60); eGFR For Non-African Americans > 60 (> 60)
[2021-01-10] MEDS ORDERED: Isovue-370 500 ML BOTTLE IVP ONE (00:15)
[2021-01-10] MEDS ORDERED: Acetaminophen 325 MG TABLET PO PRN (00:27)
[2021-01-10] MEDS ORDERED: Naloxone 0.4 MG/ML INJ IVP PRN (00:27)
[2021-01-10 01:01] LABS: Bilirubin,Urine Negative (Negative); Blood,Urine Negative (Negative); Clarity,Urine Clear (Clear); Color,Urine Yellow (Yellow); Glucose,Urine (UA) Normal (Normal); Ketones,Urine Negative (Negative); Leukocyte Esterase,Urine Negative (Negative); Nitrite,Urine Negative (Negative); Protein,Urine Trace mg/dL (Neg-Trace); Specific Gravity,Urine > 1.030 (1.010-1.025); Urobilinogen,Urine Normal (Normal)
[2021-01-10] MEDS ORDERED: *HR* Heparin 5,000 UNIT/ML VIAL IVP PRN ×2 (02:20)
[2021-01-10] MEDS ORDERED: *HR* Heparin 5,000 UNIT/ML VIAL IVP ONE (02:20)
[2021-01-10] MEDS ORDERED: Heparin 25,000UNIT/250ML 1/2NS 25,000 UNIT/250 ML IV.SOLN IVC SCH (02:30)
[2021-01-10] MEDS ORDERED: Morphine Sulfate 2 MG/ML SYRINGE IVP ONE (02:51)
[2021-01-10 03:20] LABS: Hematocrit 34.7 % (37.5-50.1); Hemoglobin 11.5 g/dL (12.9-16.9); Mean Corpuscular HGB Conc 33.1 g/dL (31.6-35.5); Mean Corpuscular Hemoglobin 30.2 pg (28.0-33.3); Mean Corpuscular Volume 91.1 fL (83.0-100.0); Mean Platelet Volume 11.9 fL (9.4-12.4); Platelet Count 153 K/mcL (140-400); Red Blood Count 3.81 M/mcL (4.19-5.50); Red Cell Distribution Width 14.4 % (11.5-14.5); White Blood Count 6.1 K/mcL (4.3-11.1)
[2021-01-10 03:33] LABS: Heparin anti-factor XA UFH 0.24 IU/mL (0.30-0.70); INR 1.3; Prothrombin Time 14.5 Seconds (9.4-12.1)
[2021-01-10 03:39] LABS: BUN/Creatinine Ratio 23 (6-26); Blood Urea Nitrogen 21 mg/dL (8-23); Calcium 8.1 mg/dL (8.6-10.3); Carbon Dioxide 26 mEq/L (23-29); Chloride 107 mEq/L (98-107); Chol/HDL Ratio 5.3 (0-4.9); Cholesterol 100 mg/dL (< 200); Glucose 101 mg/dL (70-105); HDL Cholesterol 19 mg/dL (40-59); LDL Cholesterol,Calculated 48 mg/dL (< 100); Magnesium 1.6 mg/dL (1.6-2.6); Osmolality,Calculated 291 (280-300); Potassium 3.6 mEq/L (3.5-5.1); Sodium 139 mEq/L (136-145); Triglycerides 163 mg/dL (< 150); eGFR For African Americans > 60 (> 60); eGFR For Non-African Americans > 60 (> 60)
[2021-01-10 07:39] LABS: Estimated Average Glucose 120 mg/dl; Hemoglobin A1C 5.8 %
[2021-01-10] MEDS: Aspirin Enteric Coated 81 MG Tablet PO SCH (08:39)
[2021-01-10] MEDS: Heparin 25,000UNIT/250ML 1/2NS 25,000 UNIT/250 ML IV.SOLN IVC SCH (08:41)
[2021-01-10] MEDS: *HR* HYDROcodone/Acet 5/325 mg TABLET PO PRN ×2 (09:34→17:30)
[2021-01-10] MEDS ORDERED: Ipratropium/Albuterol Neb 3 ML IH PRN (11:13)
[2021-01-10] MEDS: Furosemide 40 MG TABLET PO SCH (11:44)
[2021-01-10] MEDS ORDERED: Fluticasone Propionate Nasal 50 MCG/SPRAY BOTTLE NS PRN (15:09)
[2021-01-10] MEDS ORDERED: Melatonin 3 MG TABLET PO PRN (15:09)
[2021-01-10] MEDS ORDERED: Divalproex (24 HR) 500 MG TABLET PO SCH (15:15)
[2021-01-10] MEDS: Pregabalin 75 MG CAPSULE PO SCH (19:47)
[2021-01-10] MEDS: Divalproex (24 HR) 500 MG TABLET PO SCH (19:47)
[2021-01-11 05:21] LABS: Hematocrit 37.5 % (37.5-50.1); Hemoglobin 12.5 g/dL (12.9-16.9); Mean Corpuscular HGB Conc 33.3 g/dL (31.6-35.5); Mean Corpuscular Volume 90.1 fL (83.0-100.0); Mean Platelet Volume 12.4 fL (9.4-12.4); Platelet Count 167 K/mcL (140-400); Red Blood Count 4.16 M/mcL (4.19-5.50); Red Cell Distribution Width 14.6 % (11.5-14.5); White Blood Count 5.4 K/mcL (4.3-11.1)
[2021-01-11] MEDS: Heparin 25,000UNIT/250ML 1/2NS 25,000 UNIT/250 ML IV.SOLN IVC SCH (05:38)
[2021-01-11 05:41] LABS: BUN/Creatinine Ratio 23 (6-26); Blood Urea Nitrogen 18 mg/dL (8-23); Calcium 8.9 mg/dL (8.6-10.3); Carbon Dioxide 25 mEq/L (23-29); Chloride 106 mEq/L (98-107); Glucose 102 mg/dL (70-105); Osmolality,Calculated 290 (280-300); Potassium 3.7 mEq/L (3.5-5.1); Sodium 139 mEq/L (136-145); eGFR For African Americans > 60 (> 60); eGFR For Non-African Americans > 60 (> 60)
[2021-01-11] MEDS ORDERED: Perflutren Lipid Microsphere 1.3 ML in 0.9 % Sodium Chloride 8.7 ML IVP PRN (08:18)
[2021-01-11] MEDS: Aspirin Enteric Coated 81 MG Tablet PO SCH (08:32)
[2021-01-11] MEDS: Pregabalin 75 MG CAPSULE PO SCH (08:33)
[2021-01-11] MEDS: Divalproex (24 HR) 500 MG TABLET PO SCH (08:34)
[2021-01-11] MEDS: Furosemide 40 MG TABLET PO SCH (08:34)
[2021-01-11] MEDS: *HR* HYDROcodone/Acet 5/325 mg TABLET PO PRN (08:36)
[2021-01-11] MEDS ORDERED: Finasteride 5 MG TABLET PO SCH (09:00)
[2021-01-11] MEDS ORDERED: SUMAtriptan succinate 50 MG TABLET PO PRN (09:00)
[2021-01-11] MEDS ORDERED: Loratadine 10 MG TABLET PO SCH (09:00)
[2021-01-11 13:01] VITALS: BP 110/76
[2021-01-11] MEDS ORDERED: Ranolazine 500 MG TAB.ER.12H PO SCH (13:30)
== END 2021-01-11 15:27 | disposition home or self-care (01) | DRG 281 ==
LOC: 2ANU 20:46 → EMEROOARM 20:46 → 2ANU 01-10 00:17
PROVIDERS: ADMIT Internal Medicine; ATTEND Internal Medicine